=== PATIENT | female | born 1990 | race Caucasian/White ===

== ENCOUNTER → 2020-12-31 | Day surgery (SDC) | payer OTHER ==
[~2020-12-31] VITALS: Ht 167.6 cm; Wt 111.1 kg
[~2020-12-31] MED LIST: FOLIC ACID1 M1 PO; GABAPENTIN600 MG PO; IRON325 M1 PO; MOTRIN600 MG PO; PERCOCET 5-3251 EACH PO; ROBAXIN500 MG PO; VITAMIN B1 PO; VITAMIN D31250 MCG PO; VITAMIN E100 UNIT PO
[2020-12-31 08:56] LABS: HCG (URINE) SCREEN NEGATIVE (NEGATIVE)
[2020-12-31 09:26] LABS: HCT 38.4 % (37.0-47.0); HGB 12.5 g/dl (12.5-16.0); MCH 28.4 pg (25.0-31.0); MCHC 32.6 g/dL (32.0-36.0); MCV 87.3 fL (78.0-100.0); MPV 9.2 fL (6.0-9.5); RBC 4.4 M/uL (4.20-5.40); RDW 13.7 % (11.5-14.0); WBC 7.3 K/uL (4.0-10.5)
== END | disposition home or self-care (01) ==
LOC: FAS 08:35
PROVIDERS: Obstetrics & Gynecology
DX: N83.202 Unspecified ovarian cyst, left side (principal); D64.9 Anemia, unspecified; K21.9 Gastro-esophageal reflux disease without esophagitis; J30.9 Allergic rhinitis, unspecified; E66.9 Obesity, unspecified; Z68.39 Body mass index [BMI] 39.0-39.9, adult; Z79.899 Other long term (current) drug therapy
CPT/HCPCS: 36415; 84703; 86850; 86900; 86901; 93005; J1100; J1170; J1885; J2250; J2405; J2704; J2710; J3010; J7120